=== PATIENT | female | born 1965 | race Caucasian/White ===

== ENCOUNTER 2016-09-09 22:32 | Emergency (ER) | payer BC ==
[2016-09-09] MEDS ORDERED: ASPIRIN 81 MG CHEW TAB ONE (23:41)
[2016-09-10] MEDS ORDERED: ACETAMINOPHEN 325 MG TAB ONE (01:40)
== END 2016-09-10 03:27 | disposition home or self-care (01) ==
LOC: ER 22:32
DX: R07.2 Precordial pain (principal); R07.89 Other chest pain; R04.0 Epistaxis; G43.909 Migraine, unspecified, not intractable, without status migrainosus; G44.89 Other headache syndrome; Z86.73 Personal history of transient ischemic attack (TIA), and cerebral infarction without residual deficits; Z87.891 Personal history of nicotine dependence; E03.9 Hypothyroidism, unspecified; Z79.899 Other long term (current) drug therapy
CPT/HCPCS: 36415; 70450; 71010; 80053; 82550; 83735; 84484; 85025; 85610; 85730; 93005